=== PATIENT | male | born 1990 | race African-American/Black ===

== ENCOUNTER 2025-04-11 12:54 | Emergency (ER) | payer OTHER ==
[~2025-04-11] VITALS: Ht 167.6 cm; Wt 68.2 kg
[~2025-04-11 12:54] MED LIST: ACET-784 PO; BUPR75TA3 PO; DIAZ-328 PO
[2025-04-11 12:58] VITALS: BP 142/87; PULSE 97; RESP 18; TEMP 98.2; O2SAT 95
== END 2025-04-11 15:06 | disposition left against medical advice (07) ==
LOC: EMS 12:54
DX: M25.572 Pain in left ankle and joints of left foot (principal); Z53.21 Procedure and treatment not carried out due to patient leaving prior to being seen by health care provider
CPT/HCPCS: 99281; 73610-TC; Z7502